=== PATIENT | female | born 1955 | race Caucasian/White ===

== ENCOUNTER 2018-03-27 10:30 | Observation (INO) | payer OTHER, MEDICARE ==
--- NOTE | 2018-03-27 12:51 | ER Document Report ---
ED Medical Screen (RME) - General Chief Complaint: Abscess Stated Complaint: POSSIBLE ABSCESS Time Seen by Provider: 03/27/18 12:45 Primary Care Provider: NAOMI TURNER MD [Primary Care Provider] - Follow up as needed Mode of Arrival: Ambulatory Information source: Patient Notes: 63-year-old female with a history of diabetes presents emergency department with complaints of pain to the dog. Patient states that she scratched the area and today felt a swollen painful area. Patient states that she has had abscesses in the past. She denies a history of MRSA. Patient believes her tetanus is up-to-date. I have greeted and performed a rapid initial assessment of this patient. A comprehensive ED assessment and evaluation of the patient, analysis of test res ults and completion of the medical decision making process will be conducted by additional ED providers. PHYSICAL EXAMINATION: GENERAL: Well-appearing, well-nourished and in no acute distress. HEAD: Atraumatic, normocephalic. EYES: Pupils equal round extraocular movements intact, conjunctiva are normal. ENT: Nares patent NECK: Normal range of motion LUNGS: No respiratory distress Musculoskeletal: Normal range of motion NEUROLOGICAL: Normal speech, normal gait. TRAVEL OUTSIDE OF THE [place] IN LAST 30 DAYS: No - Related Data Allergies/Adverse Reactions: morphine [Morphine] Adverse Reaction (Unknown, Verified 03/27/18 10:46) Past Medical History - Social History Chew tobacco use (# tins/day): No Frequency of alcohol use: None Drug Abuse: None Pulmonary Medical History: Denies: Hx Tuberculosis Endocrine Medical History: Reports: Hx Diabetes Mellitus Type 2 - IDDM Renal/ Medical History: Denies: Hx Peritoneal Dialysis Psychiatric Medical History: Reports: Hx Depression Past Surgical History: Reports: Hx Appendectomy, Hx Section - X2, Hx Hysterectomy, Hx Orthopedic Surgery - RIGHT FOOT, Hx Tonsillectomy Physical Exam - Vital signs Vitals: Temp Pulse Resp BP Pulse Ox 98.5 F 96 16 118/68 100 03/27/18 11:00 03/27/18 11:00 03/27/18 11:00 03/27/18 11:00 03/27/18 11:00 Course - Vital Signs Vital signs: Temp Pulse Resp BP Pulse Ox 98.5 F 96 16 118/68 100 03/27/18 11:00 03/27/18 11:00 03/27/18 11:00 03/27/18 11:00 03/27/18 11:00 Doctor's Discharge - Discharge Referrals: NAOMI TURNER MD [Primary Care Provider] - Follow up as needed
[2018-03-27 13:34] LABS: ABSOLUTE EOSINOPHILS # (AUTO) 0.1 10^3/uL (0.0-0.6); ABSOLUTE LYMPHOCYTES (AUTO) 1.6 10^3/uL (0.5-4.7); ABSOLUTE MONOCYTES (AUTO) 1.1 10^3/uL (0.1-1.4); ABSOLUTE NEUT (AUTO) 11.7 10^3/uL (1.7-8.2); BASOPHILS % (AUTO) 0.2 % (0-2); EOSINOPHILS % (AUTO) 0.7 % (0-6); HEMATOCRIT 36.8 % (36.0-47.0); HEMOGLOBIN 12.1 g/dL (12.0-15.5); LYMPHOCYTES % (AUTO) 10.8 % (13-45); MEAN CORPUSCULAR HEMOGLOBIN 27.5 pg (27.0-33.4); MEAN CORPUSCULAR HGB CONC 32.9 g/dL (32.0-36.0); MEAN CORPUSCULAR VOLUME 83 fl (80-97); MONOCYTES % (AUTO) 7.9 % (3-13); PLATELET COUNT 356 10^3/uL (150-450); RED BLOOD COUNT 4.41 10^6/uL (3.72-5.28); RED CELL DISTRIBUTION WIDTH 12.7 % (11.5-14.0); SEGMENTED NEUTROPHILS % (AUTO) 80.4 % (42-78); TOTAL CELLS COUNTED % (AUTO) 100 %; WHITE BLOOD COUNT 14.5 10^3/uL (4.0-10.5)
[2018-03-27 13:57] LABS: ALANINE AMINOTRANSFERASE 17 U/L (9-52); ALBUMIN 3.9 g/dL (3.5-5.0); ALKALINE PHOSPHATASE 171 U/L (38-126); ANION GAP 15 (5-19); ASPARTATE AMINO TRANSFERASE 17 U/L (14-36); BILIRUBIN,DIRECT 0.4 mg/dL (0.0-0.4); BILIRUBIN,TOTAL 0.6 mg/dL (0.2-1.3); BLOOD UREA NITROGEN 18 mg/dL (7-20); CALCIUM 9.6 mg/dL (8.4-10.2); CARBON DIOXIDE 27 mmol/L (22-30); CHLORIDE 97 mmol/L (98-107); GLUCOSE 357 mg/dL (75-110); POTASSIUM 4.8 mmol/L (3.6-5.0); SODIUM 138.8 mmol/L (137-145); TOTAL PROTEIN 6.9 g/dL (6.3-8.2)
[2018-03-27] MEDS ORDERED: IBUPROFEN 600 MG TABLET PO ONE (16:39)
--- NOTE | 2018-03-27 17:11 | ER Document Report ---
ED General - General Chief Complaint: Abscess Stated Complaint: POSSIBLE ABSCESS Time Seen by Provider: 03/27/18 12:45 Primary Care Provider: NAOMI TURNER MD [ACTIVE STAFF] - Follow up as needed Mode of Arrival: Ambulatory Notes: 63-year-old female with history of diabetes mellitus presents to the emergency department with concern for an abscess on her buttock. She states that the sym ptoms started on Saturday and it was itchy. Her looked at it inspected it and they have been placing Neosporin on it with hot packs. She has been taking Motrin for the pain and inflammation. inspected it today and looked much, much worse in his words. Patient denies fevers, complains of chills, denies nausea, vomiting, diarrhea. Denies shortness of breath or chest pain. TRAVEL OUTSIDE OF THE [place] IN LAST 30 DAYS: No - Related Data Allergies/Adverse Reactions: morphine [Morphine] Adverse Reaction (Unknown, Verified 03/27/18 10:46) Past Medical History - General Information source: Patient - Social History Smoking Status: Unknown if Ever Smoked Chew tobacco use (# tins/day): No Frequency of alcohol use: None Drug Abuse: None Family History: Reviewed & Not Pertinent Patient has suicidal ideation: No Patient has homicidal ideation: No Pulmonary Medical History: Denies: Hx Tuberculosis Endocrine Medical History: Reports: Hx Diabetes Mellitus Type 2 - IDDM Renal/ Medical History: Denies: Hx Peritoneal Dialysis Psychiatric Medical History: Reports: Hx Depression Past Surgical History: Reports: Hx Appendectomy, Hx Section - X2, Hx Hysterectomy, Hx Orthopedic Surgery - RIGHT FOOT, Hx Tonsillectomy - Immunizations Hx Pneumococcal Vaccination: 05/13/13 Review of Systems - Review of Systems Constitutional: See HPI EENT: No symptoms reported Cardiovascular: See HPI Respiratory: See HPI Gastrointestinal: See HPI Genitourinary: No symptoms reported Female Genitourinary: No symptoms reported Musculoskeletal: No symptoms reported Skin: See HPI Hematologic/Lymphatic: No symptoms reported Neurological/Psychological: No symptoms reported Physical Exam - Vital signs Vitals: Temp Pulse Resp BP Pulse Ox 98.5 F 96 16 118/68 100 03/27/18 11:00 03/27/18 11:00 03/27/18 11:00 03/27/18 11:00 03/27/18 11:00 - Notes Notes: PHYSICAL EXAMINATION: Reviewed vital signs and charting by RN GENERAL: Alert, interacts well. No acute distress. HEAD: Normocephalic, atraumatic. EYES: Pupils equal, round. Extraocular movements intact NECK: Full range of motion. Supple. Trachea midline. LUNGS: Clear to auscultation bilaterally, no wheezes, rales, or rhonchi. No respiratory distress. HEART: Regular rate and rhythm. No murmur ABDOMEN: soft, non-tender. Non-distended. Bowel sounds present in all 4 quadrants. EXTREMITIES: Moves all 4 extremities spontaneously. No edema, No cyanosis. BACK: no cervical, thoracic, lumbar midline tenderness. No saddle anesthesia, normal distal neurovascular exam. NEUROLOGICAL: Alert and oriented x3. Normal speech. PSYCH: Normal affect, normal mood. SKIN: Warm, dry, normal turgor. Large appearing abscess on the right buttock at the gluteal fold near the gluteal cleft, large area of induration small area of fluctuance appreciated. There is some associated ecchymosis/discoloration. Acutely tender to palpation. Course - Re-evaluation Re-evalutation: 03/27/18 17:11 Overall well-appearing 63-year-old female comes to the ER for abscess. Upon initial inspection it is unclear how much involvement there is internally. I have called Dr. Nicholas for formal consultation to assess the wound. Of note patient has a leukocytosis of 14.5, blood glucose is 357. 03/27/18 17:17 Dr. Nicholas came and assessed the patient. Plan is to take her to the OR. He request that she gets admitted to the medicine floor. 03/27/18 18:[address] Meier, hospitalist, he agreed to admit the patient for full admission to the medical floor. - Vital Signs Vital signs: Temp Pulse Resp BP Pulse Ox 98.5 F 96 16 118/68 100 03/27/18 11:00 03/27/18 11:00 03/27/18 11:00 03/27/18 11:00 03/27/18 11:00 - Laboratory Result Diagrams: 03/27/18 13:00 03/27/18 13:00 Laboratory results interpreted by me: 03/27/18 03/27/18 13:00 13:00 WBC 14.5 H Seg Neutrophils % 80.4 H Lymphocytes % 10.8 L Absolute Neutrophils 11.7 H Chloride 97 L Glucose 357 H Alkaline Phosphatase 171 H Discharge - Discharge Clinical Impression: Abscess and cellulitis of gluteal region Leukocytosis Qualifiers: Leukocytosis type: unspecified Qualified Code(s): D72.829 - Elevated white blood cell count, unspecified Disposition: ADMITTED INPATIENT Admitting Provider: Hospitalist Unit Admitted: Medical Floor Referrals: NAOMI TURNER MD [ACTIVE STAFF] - Follow up as needed
[2018-03-27] MEDS ORDERED: CEFAZOLIN 1 GM/D5W RTU 1 GM/50 ML RTUPB IV ONE (17:35)
[2018-03-27] MEDS ORDERED: FENTANYL CITRATE INJ/PF 100 MCG/2 ML AMPUL ONE (18:34)
[2018-03-27] MEDS ORDERED: KETAMINE HCL INJ 500 MG/10 ML VIAL ONE (18:34)
[2018-03-27] MEDS ORDERED: LIDOCAINE 2% INJ-PF (20 MG/ML) 10 ML AMPUL ONE (18:34)
[2018-03-27] MEDS ORDERED: MIDAZOLAM 2 MG/2 ML INJ ONE (18:34)
[2018-03-27] MEDS ORDERED: ONDANSETRON HCL INJ/PF 4 MG/2 ML SDV ONE (18:35)
[2018-03-27] MEDS ORDERED: PROPOFOL INJ 200 MG/20 ML VIAL IV ONE (18:35)
[2018-03-27] MEDS ORDERED: BUPIVACAINE HCL 0.5%-EPI 1:200000 INJ/PF 30 ML VIAL ONE (18:48)
[2018-03-27] MEDS ORDERED: OXYCODONE-ACETAMINOPHEN 5-325 MG TABLET PO PRN ×2 (19:12)
[2018-03-27] MEDS ORDERED: ONDANSETRON HCL INJ/PF 4 MG/2 ML SDV IV PRN ×3 (19:12→20:52)
[2018-03-27] MEDS ORDERED: MEPERIDINE HCL/PF INJ 25 MG/1 ML DISP.SYRIN IV PRN (19:12)
[2018-03-27] MEDS ORDERED: FENTANYL CITRATE INJ/PF 100 MCG/2 ML AMPUL IV PRN ×3 (19:12)
[2018-03-27] MEDS ORDERED: DIPHENHYDRAMINE HCL 50 MG/ML VIAL IV PRN (19:12)
[2018-03-27] MEDS ORDERED: PROMETHAZINE HCL INJ 25 MG/1 ML VIAL IV PRN ×2 (19:12)
[2018-03-27] MEDS ORDERED: ACETAMINOPHEN 325 MG TABLET PO PRN (20:21)
[2018-03-27] MEDS ORDERED: DEXTROSE 50%-WATER 25 GM/50 ML DISP.SYRIN IV PRN ×2 (20:27)
[2018-03-27] MEDS ORDERED: GLUCAGON,HUMAN RECOMB 1 MG INJ IM PRN (20:27)
[2018-03-27] MEDS ORDERED: DEXTROSE 40% GEL 15 GM TUBE PO PRN ×2 (20:27)
[2018-03-27] MEDS ORDERED: OXYCODONE HCL IR 5 MG TABLET PO PRN ×2 (20:28→20:29)
[2018-03-27] MEDS ORDERED: NORMAL SALINE 1000 ML 1,000 ML IV PRN (20:53)
--- NOTE | 2018-03-27 21:28 | HISTORY AND PHYSICAL E ---
History and Physical NAME: MELISSA JON : 1955 AGE: 63Y ADMITTED: 03/27/2018 ROOM: ED37 CHIEF COMPLAINT: Right perianal pain. HISTORY OF PRESENT ILLNESS: This is a 63-year-old female diabetic complaining of pain along the right perianal area since 6 days ago. She denies any fever, chills, diarrhea, shortness of breath or chest pain. She did have a history of chronic constipation. PAST MEDICAL HISTORY: Diabetes mellitus. Takes insulin. PAST SURGICAL HISTORY: 1. History of perforated acute appendicitis with postoperative wound infection. 2. section. 3. Hysterectomy. ALLERGIES: Question DILAUDID makes her feel woozy. SOCIAL HISTORY: Denies smoking. Drinks rarely. FAMILY HISTORY: Strong for heart disease on the mother's side. REVIEW OF SYSTEMS: Denies any fever or chills. No visceral or hearing changes. No cough or chest pains. No abdominal pains. No leg pains. Admits to pains along the right perianal area. No definite discomfort on bowel movement. PHYSICAL EXAMINATION: GENERAL: Well-developed, quite obese 63-year-old female, alert and oriented, in mild distress. NECK: Supple. No thyromegaly. LUNGS: Clear. HEART: Regular sinus rhythm. ABDOMEN: Soft, nontender. RECTAL: Area showed redness and induration that is quite tender along the right perianal area. EXTREMITIES: No edema. IMPRESSION: Abscess of the right perianal area. PLAN: Incision and drainage. Start IV antibiotics. Start hydration. DICTATING PHYSICIAN: CONNOR VALENTINE M.D. [id number] PHY#: [id number] ID: [id number] JOB#: [id number] ACCT: [id number] cc:Janette PALOMINO MD >
[2018-03-27] MEDS: INSULIN LISPRO 100 UNIT/ML 3 ML VIAL SUBCUT SCH (21:59)
[2018-03-27] MEDS: HEPARIN SOD (PORCINE) 5,000 UNIT/ML 1 ML SYRINGE SUBCUT SCH (22:02)
[2018-03-27] MEDS: PIPERACILLIN SODIUM/TAZOBACTAM 3.375 GM in NORMAL SALINE 100 ML IV SCH (23:31)
[2018-03-27] MEDS: KETOROLAC TROMETHAMINE INJ/PF 30 MG/1 ML SDV IV SCH (23:32)
[2018-03-28 04:30] LABS: HEMATOCRIT 31.7 % (36.0-47.0); HEMOGLOBIN 10.4 g/dL (12.0-15.5); MEAN CORPUSCULAR HEMOGLOBIN 27.1 pg (27.0-33.4); MEAN CORPUSCULAR HGB CONC 32.7 g/dL (32.0-36.0); MEAN CORPUSCULAR VOLUME 83 fl (80-97); PLATELET COUNT 268 10^3/uL (150-450); RED BLOOD COUNT 3.82 10^6/uL (3.72-5.28); RED CELL DISTRIBUTION WIDTH 12.7 % (11.5-14.0); WHITE BLOOD COUNT 13.6 10^3/uL (4.0-10.5)
[2018-03-28 04:55] LABS: ANION GAP 11 (5-19); BLOOD UREA NITROGEN 20 mg/dL (7-20); CALCIUM 8.8 mg/dL (8.4-10.2); CARBON DIOXIDE 26 mmol/L (22-30); CHLORIDE 100 mmol/L (98-107); GLUCOSE 345 mg/dL (75-110); POTASSIUM 4.3 mmol/L (3.6-5.0); SODIUM 136.5 mmol/L (137-145)
[2018-03-28] MEDS: HEPARIN SOD (PORCINE) 5,000 UNIT/ML 1 ML SYRINGE SUBCUT SCH (06:20)
[2018-03-28] MEDS: PIPERACILLIN SODIUM/TAZOBACTAM 3.375 GM in NORMAL SALINE 100 ML IV SCH (06:24)
[2018-03-28] MEDS: KETOROLAC TROMETHAMINE INJ/PF 30 MG/1 ML SDV IV SCH (06:29)
[2018-03-28] MEDS ORDERED: HUM INSULIN NPH/REG INSULIN HM 100 UNIT/1 ML 3 ML SUBCUT SCH ×2 (08:00)
[2018-03-28] MEDS ORDERED: METFORMIN HCL 500 MG TABLET PO SCH (08:00)
[2018-03-28] MEDS: INSULIN LISPRO 100 UNIT/ML 3 ML VIAL SUBCUT SCH ×2 (09:03→12:37)
--- NOTE | 2018-03-28 09:18 | PDOC PROGRESS REPORT ---
Subjective Progress Note for:: 03/28/18 Reason For Visit: [place] CLEFT ABSCESS post op incision and drainage of perirectal abscess Physical Exam Vital Signs: Temp Pulse Resp BP Pulse Ox 98.4 F 85 18 120/51 L 100 03/28/18 08:02 03/28/18 08:02 03/28/18 08:02 03/28/18 08:02 03/28/18 08:02 Intake & Output 03/27/18 03/28/18 03/29/18 06:59 06:59 06:59 Intake Total 3700 Output Total 286 Balance 3414 Weight 94.1 kg General appearance: PRESENT: no acute distress Respiratory exam: PRESENT: clear to auscultation sandra GI/Abdominal exam: PRESENT: soft Rectal exam: PRESENT: other - right sided perirectal abscess, packing removed much less cellulitis wound open 2 drainage sites Results Laboratory Results: 03/28/18 04:18 03/28/18 04:18 03/27/18 03/27/18 03/28/18 13:00 13:00 04:18 WBC 14.5 H 13.6 H RBC 4.41 3.82 Hgb 12.1 10.4 L Hct 36.8 31.7 L MCV 83 83 MCH 27.5 27.1 MCHC 32.9 32.7 RDW 12.7 12.7 Plt Count 356 268 Seg Neutrophils % 80.4 H Lymphocytes % 10.8 L Monocytes % 7.9 Eosinophils % 0.7 Basophils % 0.2 Absolute Neutrophils 11.7 H Absolute Lymphocytes 1.6 Absolute Monocytes 1.1 Absolute Eosinophils 0.1 Absolute Basophils 0.0 Sodium 138.8 Potassium 4.8 Chloride 97 L Carbon Dioxide 27 Anion Gap 15 BUN 18 Creatinine 0.62 Est GFR ( Amer) > 60 Est GFR (Non-Af Amer) > 60 Glucose 357 H Calcium 9.6 Total Bilirubin 0.6 AST 17 ALT 17 Alkaline Phosphatase 171 H Total Protein 6.9 Albumin 3.9 03/28/18 04:18 WBC RBC Hgb Hct MCV MCH MCHC RDW Plt Count Seg Neutrophils % Lymphocytes % Monocytes % Eosinophils % Basophils % Absolute Neutrophils Absolute Lymphocytes Absolute Monocytes Absolute Eosinophils Absolute Basophils Sodium 136.5 L Potassium 4.3 Chloride 100 Carbon Dioxide 26 Anion Gap 11 BUN 20 Creatinine 0.73 Est GFR ( Amer) > 60 Est GFR (Non-Af Amer) > 60 Glucose 345 H Calcium 8.8 Total Bilirubin AST ALT Alkaline Phosphatase Total Protein Albumin Assessment & Plan - Plan Summary Plan Summary: s/p admission for hyperglycemia and perirectal abscess taken to or last pm for incision and drainage this am perirectal wound markedly improved packing removed from surgery standpoint, pt can be discharged home with instruction for tid sitz baths with epsom salt (instructions given to patient) pt should have po abx for 7-10 days cipro 500mg po bid and flagyl 250mg po bid (scripts given) will also give script for pain meds pt will f/u in surgery clinic 08-27
--- NOTE | 2018-03-28 10:08 | OPERATIVE REPORT E ---
Operative Report NAME: MELISSA JON : 1955 AGE: 63Y DATE OF SURGERY: ROOM: 534 PREOPERATIVE DIAGNOSIS: Right perianal abscess. POSTOPERATIVE DIAGNOSIS: Right perianal abscess. PROCEDURE: Incision and drainage of right perianal abscess. SURGEON: CONNOR VALENTINE M.D. ANESTHESIA: Local MAC. INDICATIONS: This is a 63-year-old female, diabetic, note increasing pains in right perianal area for the past several days. Denies any fever or chills. She has a fluctuant area right, lateral to the rectum. This is noted to be markedly tender. DESCRIPTION OF PROCEDURE: The patient was placed in the prone and jackknife position and given adequate IV sedation. The perianal area was then prepped and draped in the usual sterile fashion. Appropriate timeout was then called. Local anesthesia infiltrated around the fluctuant area. A transverse incision was made and a lot of purulent material extruded out. This was foul smelling. At least 100 mL of purulent material was noted. The rectum was then examined and no evidence of hemorrhoids or any fistula tract noted. The abscess cavity was subsequently pulse lavaged with at least 3 L of saline. More necrotic tissue at the level of the subcutaneous area was then debrided. The was subsequently packed with a bottle full of 1/2 inch Iodoform gauze. A sterile dressing was placed over the operative site. Needle, instrument, sponge count were all correct. Estimated blood loss about 10 mL. Patient brought to recovery in satisfactory condition. DICTATING PHYSICIAN: CONNOR VALENTINE M.D. [id number] PHY#: [id number] ID: [id number] JOB#: [id number] ACCT: [id number] cc:CONNOR VALENTINE M.D. >
--- NOTE | 2018-03-28 11:39 | PDOC DISCHARGE SUMMARY ---
General - Admit/Disc Date/PCP Admission Date/Primary Care Provider: 03/27/18 18:45 Discharge Date: 03/28/18 - Discharge Diagnosis (1) Abscess and cellulitis of gluteal region Is this a current diagnosis for this admission?: Yes Summary: Please also see the surgical list note. The patient had an abscess that was drained last night. The wound is going to be left open for healing with sits baths 3 times a day with Epsom salts. Surgery provided antibiotics and analgesia prescription for the patient. They will follow-up with surgery in 7- 10 days. (2) Diabetes mellitus type 2, uncontrolled Is this a current diagnosis for this admission?: Yes Summary: The patient's serum glucose was greater than 300 at admission. It remains high. Unfortunately the patient's hemoglobin A1c was greater than 14. The patient absolutely must establish with a primary care provider. I will add metformin 1000 mg twice daily to her regimen and I have instructed her to increase her 70/30 dosing. (3) Leukocytosis Is this a current diagnosis for this admission?: Yes Summary: At the time of discharge her white blood cell count is still slightly elevated. This should resolve over the next several days. - Additional Information Resuscitation Status: Full Code Home Medications: Ascorbic Acid [Vitamin C] 500 mg PO DAILY 03/27/18 Calcium Carbonate [Calcium] 500 mg PO DAILY 03/27/18 Multivit-Minerals/Folic Acid [One-A-Day Vitacraves Gummie] 200 mcg PO DAILY 03/27/18 NPH, Human Insulin Isophane [Novolin N (NPH) Insulin 100 unit/mL] 30 unit SUBCUT BIDACBS 03/27/18 Vitamin E [Natural Vitamin E] 400 unit PO DAILY 03/27/18 History of Present Illness Patient complains of: Pain and discomfort in the buttock History of Present Illness: MELISSA JON is a 63 year old female with a history of diabetes mellitus. She presented with complaints of pain along the right perianal area. Examination revealed an abscess. She was referred to surgery for incision and drainage. The hospitalist team will manage her diabetes. Hospital Course Hospital Course: The patient had an unremarkable hospital course. The incision and drainage went well. She feels better this morning. Unfortunately her hemoglobin A1c is greater than 14. I will make medication adjustments at discharge but she absolutely must establish with a primary care provider. Physical Exam Vital Signs: Temp Pulse Resp BP Pulse Ox 98.4 F 85 18 120/51 L 100 03/28/18 08:02 03/28/18 08:02 03/28/18 08:02 03/28/18 08:02 03/28/18 08:02 Intake & Output 03/27/18 03/28/18 03/29/18 06:59 06:59 06:59 Intake Total 3700 Output Total 286 Balance 3414 Weight 94.1 kg General appearance: PRESENT: no acute distress, cooperative Respiratory exam: PRESENT: clear to auscultation sandra, symmetrical, unlabored. ABSENT: rales, rhonchi, wheezes Cardiovascular exam: PRESENT: RRR, +S1, +S2 GI/Abdominal exam: PRESENT: normal bowel sounds, soft. ABSENT: tenderness Rectal exam: PRESENT: other - There is an open incision from the cleft towards the perianal region. There is some dried blood on the bed pad. There is no foul odor. Neurological exam: PRESENT: alert, awake, oriented to person, oriented to place, oriented to time, oriented to situation, CN II-XII grossly intact Psychiatric exam: PRESENT: appropriate affect, normal mood. ABSENT: agitated, anxious Focused psych exam: ABSENT: restlessness Results Laboratory Results: 03/28/18 04:18 03/28/18 04:18 03/27/18 03/27/18 03/28/18 13:00 13:00 04:18 WBC 14.5 H 13.6 H RBC 4.41 3.82 Hgb 12.1 10.4 L Hct 36.8 31.7 L MCV 83 83 MCH 27.5 27.1 MCHC 32.9 32.7 RDW 12.7 12.7 Plt Count 356 268 Seg Neutrophils % 80.4 H Lymphocytes % 10.8 L Monocytes % 7.9 Eosinophils % 0.7 Basophils % 0.2 Absolute Neutrophils 11.7 H Absolute Lymphocytes 1.6 Absolute Monocytes 1.1 Absolute Eosinophils 0.1 Absolute Basophils 0.0 Sodium 138.8 Potassium 4.8 Chloride 97 L Carbon Dioxide 27 Anion Gap 15 BUN 18 Creatinine 0.62 Est GFR ( Amer) > 60 Est GFR (Non-Af Amer) > 60 Glucose 357 H Calcium 9.6 Total Bilirubin 0.6 AST 17 ALT 17 Alkaline Phosphatase 171 H Total Protein 6.9 Albumin 3.9 03/28/18 04:18 WBC RBC Hgb Hct MCV MCH MCHC RDW Plt Count Seg Neutrophils % Lymphocytes % Monocytes % Eosinophils % Basophils % Absolute Neutrophils Absolute Lymphocytes Absolute Monocytes Absolute Eosinophils Absolute Basophils Sodium 136.5 L Potassium 4.3 Chloride 100 Carbon Dioxide 26 Anion Gap 11 BUN 20 Creatinine 0.73 Est GFR ( Amer) > 60 Est GFR (Non-Af Amer) > 60 Glucose 345 H Calcium 8.8 Total Bilirubin AST ALT Alkaline Phosphatase Total Protein Albumin Qualifiers - * PATIENT BEING DISCHARGED WITH ANY OF THE FOLLOWING DIAGNOSIS: No Plan Discharge Plan: Return to home. Sitz bath 3 times a day. Complete antibiotics as directed by surgery. Follow-up with surgery in 7-10 days. Add metformin to the medical regimen. Increase 70/30 insulin and establish with primary care. Time Spent: Less than 30 Minutes
[2018-03-28 12:12] VITALS: BP 129/56
[2018-04-02] MEDS ORDERED: KETOROLAC TROMETHAMINE 10 MG TABLET PO PRN (06:00)
== END 2018-03-28 13:20 | disposition home or self-care (01) ==
LOC: ER 10:30 → EH 18:45 → INTOOBSV 18:45 → 5 21:26
PROVIDERS: ADMIT Internal Medicine; ATTEND Internal Medicine
PROC: 0D9Q0ZZ Drainage of Anus, Open Approach (ICD-10-PCS; principal; 2018-03-27 19:00)
PROC: 3E02340 Introduction of Influenza Vaccine into Muscle, Percutaneous Approach (ICD-10-PCS; 2018-03-28)
DX: K61.0 Anal abscess (principal); E11.65 Type 2 diabetes mellitus with hyperglycemia; D72.829 Elevated white blood cell count, unspecified; E66.9 Obesity, unspecified; Z79.4 Long term (current) use of insulin; Z23 Encounter for immunization
CPT/HCPCS: 99284; 96365; 36415 ×2; 87070; 87205; 82962 ×2; 85025; 85027; 87075; 87077; 80048; 80053; 87186; 83036; 90686; 46050; G0008; J2250; J3490 ×2; J0690; J3010; J1815 ×3; J1885 ×2; J2405; J2704; J2543 ×2; 902; 90471

== ENCOUNTER → 2018-12-16 | Outpatient (CLI) | payer OTHER, MEDICARE | LOC: WI 07:40 | PROVIDERS: ATTEND Surgery | DX: N63.20 Unspecified lump in the left breast, unspecified quadrant (principal) | CPT/HCPCS: 77066; G0279; 77062 ==